=== PATIENT | male | born 1960 | race Caucasian/White ===

== ENCOUNTER 2018-12-10 14:32 | Emergency (ER) | payer OTHER ==
--- NOTE | 2018-12-10 14:39 | PDOC ---
Rapid Medical Evaluation Time Seen by Provider: 12/10/18 14:38 Medical Evaluation: Allergies Allergy/AdvReac Type Severity Reaction Status Date / Time azithromycin [From Zithromax] Allergy Verified 02/09/13 20:58 diphenhydramine HCl Allergy Verified 02/09/13 20:57 [From Benadryl] Penicillins Allergy Verified 02/09/13 20:58 12/10/18 14:38 I have performed a brief in-person evaluation of this patient. The patient presents with a chief complaint of: RUQ pain and nausea Pertinent physical exam findings: Mild RUQ tenderness I have ordered the following: Labs, RUQ u/s The patient will proceed to the ED for further evaluation. Discharge Disposition - Diagnosis Right upper quadrant abdominal pain - Referrals Referrals: Swathi Santa MD [Primary Care Provider] - - Patient Instructions - Post Discharge Activity
[2018-12-10 14:42] VITALS: BP 144/80; PULSE 85; TEMP 99.6; BMI 36.6
[2018-12-10 15:14] LABS: BASO % 0.4 % (0-2.0); EOS % 0.6 % (0-4.5); HEMATOCRIT 43.5 % (35.4-49); LYMPH % 28.5 % (8-40); MCH 30.4 pg (25.7-33.7); MCHC 34.4 g/dl (32.0-35.9); MEAN CELL VOLUME 88.3 fl (80-96); MEAN PLT VOLUME 9.8 fl (7.5-11.1); MONO % 7.6 % (3.8-10.2); NEUT % 62.9 % (42.8-82.8); PLATELET COUNT 205 K/MM3 (134-434); RBC 4.93 M/mm3 (4.00-5.60); RDW 14.6 % (11.9-15.9)
--- NOTE | 2018-12-10 15:17 | PDOC ---
Attending Attestation - HPI HPI: 12/10/18 16:24 The patient is a 58 year old male, with no significant PMH, who presents to the emergency department with 2 days of RUQ pain. The patient reports associated nausea, yesterday, but denies vomiting. He states he did not eat yesterday secondary to nausea and pain. The patient reports he took tylenol this morning, with minimal relief. The patient notes eating a meal a few hours ago, which exacerbated his pain, prompting his ED visit. He reports his pain as 7/10, intermittent and burning without radiation. The patient denies chest pain, shortness of breath, headache and dizziness. Denies fever, chills, vomit, diarrhea and constipation. Denies dysuria, frequency, urgency and hematuria. Allergies: azithromycin, diphenhydramine HCL, Pencillins. PCP: Dr. Swathi Santa #[phone] - Physicial Exam PE: 12/10/18 17:01 GENERAL: Awake, alert, and fully oriented, in no acute distress HEAD: No signs of trauma EYES: PERRLA, EOMI, sclera anicteric, conjunctiva clear ENT: Auricles normal inspection, hearing grossly normal, nares patent, oropharynx clear without exudates. Moist mucosa NECK: Normal ROM, supple, no lymphadenopathy, JVD, or masses LUNGS: Breath sounds equal, clear to auscultation bilaterally. No wheezes, and no crackles HEART: Regular rate and rhythm, normal S1 and S2, no murmurs, rubs or gallops ABDOMEN: +Very minimal tenderness to deep palpation to RUQ. Soft, normoactive bowel sounds. No guarding, no rebound. No masses EXTREMITIES: Normal range of motion, no edema. No clubbing or cyanosis. No cords, erythema, or tenderness NEUROLOGICAL: Cranial nerves II through XII grossly intact. Normal speech, normal gait SKIN: Warm, Dry, normal turgor, no rashes or lesions noted. - Medical Decision Making 12/10/18 17:01 Documentation prepared by Angelina Campos, acting as certified medical aide for Manuela Ruiz MD.
--- NOTE | 2018-12-10 15:32 | PDOC ---
History of Present Illness - General Chief Complaint: Pain, Acute Stated Complaint: RUQ PAIN,PCP SENT Time Seen by Provider: 12/10/18 14:38 - History of Present Illness Initial Comments: Vincent Booth is a 58yo otherwise healthy man who presents with RUQ pain that has worsened over the past 2 days. He has never had similar pain in the past. He reports that the pain is burning in nature, and waxes and wanes somewhat throughout the day. Yesterday, the pain was about 5/10. He had some accompanying nausea and did not attempt to eat anything yesterday. Today, the pain was slightly more severe, so he took 500mg acetaminophen when he got to work today (~8am) with notable improvement in his pain. He had spaghetti for lunch, after which he had an increase in his pain. Mr Booth went to his PMD and was referred to the ED; he says that he was told it could be his gallbladder and that he would need an ultrasound. Mr Booth denies any recent fevers/shivering, vomiting, change in bowel habits , or major abdominal surgery (2x inguinal hernia repair). He does not have a history of gallstones. He does report that he has frequent hard stools and needs to strain for a bowel movement, but this has not changed over the past few days. Past History - Past Medical History Allergies/Adverse Reactions: Allergies Allergy/AdvReac Type Severity Reaction Status Date / Time azithromycin [From Zithromax] Allergy Verified 02/09/13 20:58 diphenhydramine HCl Allergy Verified 02/09/13 20:57 [From Benadryl] Penicillins Allergy Verified 02/09/13 20:58 Home Medications: Ambulatory Orders No Home Medications 0 dose .ROUTE UTDICT 02/09/13 Psyllium [Metamucil (Sugar-Free) -] 5.85 gm PO DAILY #30 packet 12/10/18 COPD: No - Surgical History GI Surgery: No Neurologic Surgery: No - Immunization History Immunization Up to Date: Yes - Suicide/Smoking/Psychosocial Hx Smoking Status: No Smoking History: Never smoked Have you smoked in the past 12 months: No Number of Cigarettes Smoked Daily: 0 Information on smoking cessation initiated: No Hx Alcohol Use: No Drug/Substance Use Hx: No Review of Systems - Review of Systems Comments:: General: No fevers, no chills, no weight or appetite change, no malaise HEENT: No changes in vision, no changes in hearing, no congestion, no sore throat CV: No chest pain, no palpitations, no LE edema Pulm: No SOB, no cough, no wheezing GI: +RUQ pain, +nausea, no vomiting, no change in bowel habits, no melena : No frequency, no urgency, no dysuria Musc: No back pain, no joint swelling, no recent injury Skin: No rash, no lesions, no erythema Endo: No excessive thirst, no heat/cold intolerance Heme: No unusual bruising or bleeding, no swollen glands Neuro: No syncope, no numbness/tingling, no focal weakness Vasc: No claudication Psych: No recent change in mood, no SI or HI *Physical Exam - Vital Signs Last Vital Signs Temp Pulse Resp BP Pulse Ox 99.6 F 85 16 144/80 100 12/10/18 14:40 12/10/18 14:40 12/10/18 14:40 12/10/18 14:40 12/10/18 14:40 - Physical Exam Comments: General: Comfortable, no acute distress HEENT: PERRL, EOMI, MMM, voice normal, normal neck ROM, no LAD Cards: RRR, no murmur appreciated Pulm: Comfortable on room air, clear to auscultation bilaterally Abd: Soft, nontender, nondistended : No CVA tenderness Ext: Atraumatic. No LE edema. ROM intact. Strength 5/5 and equal bilaterally Vasc: Extremities WWP. Skin: Normal color, no rashes or lesions Neuro: A&Ox3, CN grossly intact, normal speech, motor/sensory grossly intact and symmetric Psych: Mood appropriate to situation Moderate Sedation - Procedure Monitoring Vital Signs: Procedure Monitoring Vital Signs Temperature 99.6 F 12/10/18 14:40 Pulse Rate 85 12/10/18 14:40 Respiratory Rate 16 12/10/18 14:40 Blood Pressure 144/80 12/10/18 14:40 O2 Sat by Pulse Oximetry (%) 100 12/10/18 14:40 ED Treatment Course - LABORATORY CBC & Chemistry Diagram: 12/10/18 14:48 12/10/18 14:48 - ADDITIONAL ORDERS Additional order review: 12/10/18 14:48 RBC 4.93 MCV 88.3 MCHC 34.4 RDW 14.6 MPV 9.8 Neutrophils % 62.9 Lymphocytes % 28.5 Monocytes % 7.6 Eosinophils % 0.6 Basophils % 0.4 Medical Decision Making - Medical Decision Making 12/10/18 16:38 Vincent Booth is a 58yo otherwise healthy man who presents with worsening RUQ pain and nausea for several days. - Ddx includes gallstones, cholecystitis though less likely given no fever, liver cyst v infection, or potentially renal stone or pneumonia given location though these are unlikely as he has no cough or urinary complaints and the pain is non-radiating - Seen in RME, labs and RUQ US ordered, already completed - Labs unremarkable w/ normal LFTs, bili, lipase. - US reviewed, no obvious abnormalities including gallstones, gallbladder wall thickening, duct dilation noted. Radiology read pending - Reassuring physical exam w/ minimal RUQ pain, patient appears comfortable - Patient offered acetaminophen but declined any pain medication, states he does not need medication at this time - Likely to d/c home with PMD follow up pending final read of US 12/10/18 16:48 - US report completed. Notes fatty liver infiltrate v possible infectious process. However, LFT's WNL. - Plan to refer to GI for close follow up, will d/c home. Discussed that he should not take acetaminophen for pain with possible liver pathology, recommending NSAIDs for any pain control - Discharge home. Discussed return precautions and home care, Mr Booth states understanding and agreement with this plan. Discussed with Dr Ruiz. Odalys Dodson PGY1 *DC/Admit/Observation/Transfer Diagnosis at time of Disposition: Right upper quadrant abdominal pain - Discharge Dispostion Condition at time of disposition: Stable - Referrals Referrals: Swathi Santa MD [Primary Care Provider] - Rohan Valadez DO [Staff Physician] - - Patient Instructions Printed Discharge Instructions: DI for Abdominal Pain-Adult Additional Instructions: Discharge Instructions: You were seen in the emergency department for right upper abdominal pain. You had blood tests to check for infection or abnormalities in your gallbladder, liver, pancreas or kidney function tests. These were all normal. You also had an abdominal ultrasound that showed a possible fatty liver, but there was nothing abnormal seen in your gallbladder or kidney. Home Care: - You may take 500mg acetaminophen (Tylenol) every 8 hours as needed for pain. Instead of this, you could also consider naproxen (Aleve) 220mg every 12 hours OR 600mg ibuprofen (Advil) every 8 hours. - You reported some chronic constipation. You have been prescribed a medication called Metamucil that should be taken every day. If you do not have a bowel movement daily without straining, you can add an over the counter stool softener such as docusate daily. This can be purchased at the store or prescribed by your regular physician. - Increase your water intake to help resolve your constipation. You should try to drink 6-8 cups of water per day. Follow Up: - You have been referred to a GI doctor (Dr Valadez) for follow up of your fatty liver. You should make an appointment to see him within the next 1-2 weeks. - Make an appointment to see your regular doctor within the next week for follow up of your pain and the constipation. - Seek immediate medical care if your pain worsens significantly, you are unable to move without severe pain, you notice yellowing of your skin or eyes, you develop fever to 101F or higher, or you have any medical emergency including shortness of breath or chest pain. - Post Discharge Activity
[2018-12-10 15:33] LABS: ALK PHOS 85 U/L (45-117); ANION GAP 5 MMOL/L (8-16); BILIRUBIN,TOTAL 0.6 mg/dL (0.2-1); BLOOD UREA NITROGEN 11 mg/dL (7-18); CHLORIDE 102 mmol/L (98-107); CO2 31 mmol/L (21-32); CREATININE 0.8 mg/dL (0.55-1.3); GLUCOSE,RANDOM 88 mg/dL (74-106); LIPASE 255 U/L (73-393); POTASSIUM 3.8 mmol/L (3.5-5.1); SGOT/AST 27 U/L (15-37); SGPT/ALT 39 U/L (13-61); SODIUM 137 mmol/L (136-145); TOT PROT 8.3 g/dl (6.4-8.2)
== END 2018-12-10 18:46 | disposition home or self-care (01) ==
LOC: JER 14:32
DX: R10.11 Right upper quadrant pain (principal); Z88.0 Allergy status to penicillin; Z88.8 Allergy status to other drugs, medicaments and biological substances
CPT/HCPCS: 36415; 76705-TC; 80053; 83690; 85025; 99281-25

== ENCOUNTER 2019-06-30 14:54 | Inpatient (IN) | payer OTHER ==
--- NOTE | 2019-06-30 15:04 | PDOC ---
History of Present Illness - General Stated Complaint: RIGHT SIDE NUMBNESS Time Seen by Provider: 06/30/19 15:00 - History of Present Illness Initial Comments: 06/30/19 15:51 HPI: 58 y/o M with no significant pmh presenting 20min after sudden onset of right sided face, arm, and leg weakness and numbness. He was riding the bus when the symptoms began. During this period he also reports nonspecific headache. He denies syncope, falls, seizure, slurred speech, change in vision, tinnitus, nausea, emesis, chest pain, LH, chest pain, SOB. He promptly reported to the ED after the onset of symptoms. PMHx: as noted above ROS: as noted SHx: Denies Etoh, IVDA, tobacco use Allergies: NKDA tPA Exclusion Checklist 0-3hr - Time Elapsed Date last known well: 06/30/19 Time last known well: 14:50 Elaspsed time: Day(s) and 3 Hour(s) and 30 Minutes - Thrombolytic Therapy Candidate Is the patient eligible for Thrombolytic Therapy?: No - Exclusion Criteria 0-3hr SBP greater than 185 or DBP greater than 110mmHg despite tx: No Recent IC/spinal surgery,head trauma or stroke w/in last 3mo: No Hx of previous IC hemorrhage, IC neoplasm, AVM or aneurysm: No Active internal bleeding: No Blding diathesis(low plt ct, inc PTT,INR>1.7 or use of NOAC): No Symptoms suggest subarachnoid hemorrhage: No CT demonstrates multilobar infarct(>1/3 cerebral hemiphere): No Arterial puncture at noncompressible site in previous 7 days: No Blood glucose concentration less than 50mg/dL (2.7mmol/L): No - Relative Exclusion Criteria 0-3h Life expectancy <1yr/severe co-morbid illness/[employer]ATR[employer]IVER on admit: No : No Patient/family refused: No Rapid improvement: Yes Stroke severity too mild: Yes Recent acute [place] (w/in previous 3 months): No Seizure at onset with postictal residual neuro impairments: No Major surgery or serious trauma w/in previous 14 days: No Recent GI or hemorrhage (w/in previous 21 days): No - Ineligibility reason(s) Reasons No tPA given: See reason(s) noted above NIH Stroke Scale - Last Known Well Date/Time & Onset Date Last Known Well: 06/30/19 Time Last Known Well: 14:50 - Initial Evaluation Level of consciousness: Alert Ask patient the month and their age: Answers both correctly Ask patient to open & close eyes; make fist and let go: Obeys both correctly Best gaze (horizontal eye movement): Normal Visual field testing: No visual field loss Facial paresis (Show teeth/raise eyebrows/close eyes tight): Normal symmetrical movement (Repeat NIHSS after CT revealed NIHSS 6 for nasolabial flattening and questionable right LE dysmetria) Motor Function: Left Arm: Normal Motor Function: Right Arm: Drift Motor Function: Left Leg: Normal (extends leg 30 degrees for 5 seconds without drift) Motor Function: Right Leg: Drift Limb Ataxia: Present in one limb Sensory(Use pinprick test arms,legs,trunk,face/side to side): Mild to moderate decrease in sensation Best language (Describe picture, name items, read sentences): No Aphasia Dysarthria (read several words): Normal articulation Extinction and Inattention: No abnormality - Total Score NIH Stroke Scale Score: 4 Past History - Past Medical History Allergies/Adverse Reactions: Allergies Allergy/AdvReac Type Severity Reaction Status Date / Time azithromycin [From Zithromax] Allergy Verified 02/09/13 20:58 diphenhydramine HCl Allergy Verified 02/09/13 20:57 [From Benadryl] Penicillins Allergy Verified 02/09/13 20:58 Home Medications: Ambulatory Orders No Home Medications 0 dose .ROUTE UTDICT 02/09/13 Psyllium [Metamucil (Sugar-Free) -] 5.85 gm PO DAILY #30 packet 12/10/18 COPD: No - Surgical History GI Surgery: No Neurologic Surgery: No - Immunization History Immunization Up to Date: Yes - Suicide/Smoking/Psychosocial Hx Smoking Status: No Smoking History: Never smoked Have you smoked in the past 12 months: No Number of Cigarettes Smoked Daily: 0 Hx Alcohol Use: No Drug/Substance Use Hx: No Review of Systems - Review of Systems Comments:: 06/30/19 16:22 GENERAL/CONSTITUTIONAL: +weakness. HEAD, EYES, EARS, NOSE AND THROAT: No change in vision. No ear pain or discharge. No sore throat. CARDIOVASCULAR: No chest pain or shortness of breath RESPIRATORY: No cough, wheezing, or hemoptysis. GASTROINTESTINAL: No nausea, vomiting, diarrhea or constipation. GENITOURINARY: No dysuria, frequency, or change in urination. MUSCULOSKELETAL: No joint or muscle swelling or pain. No neck or back pain. SKIN: No rash NEUROLOGIC: +headache and change in strength/sensation. no vertigo, loss of consciousness ENDOCRINE: No increased thirst. No abnormal weight change HEMATOLOGIC/LYMPHATIC: No anemia, easy bleeding, or history of blood clots. ALLERGIC/IMMUNOLOGIC: No hives or skin allergy. *Physical Exam - Physical Exam Comments: 06/30/19 16:23 GENERAL: Awake, alert, and fully oriented, in no acute distress HEAD: No signs of trauma, normocephalic, atraumatic EYES: PERRLA, EOMI, sclera anicteric, conjunctiva clear ENT: Auricles normal inspection, hearing grossly normal, nares patent, oropharynx clear without exudates. Moist mucosa NECK: Normal ROM, supple, no lymphadenopathy, JVD, or masses LUNGS: No distress, speaks full sentences, clear to auscultation bilaterally HEART: Regular rate and rhythm, normal S1 and S2, no murmurs, rubs or gallops, peripheral pulses normal and equal bilaterally. ABDOMEN: Soft, nontender, normoactive bowel sounds. No guarding, no rebound. No masses EXTREMITIES : Normal inspection, Normal range of motion, no edema. No clubbing or cyanosis. NEUROLOGICAL: NIHSS 4; see scale SKIN: Warm, Dry, normal turgor, no rashes or lesions noted ED Treatment Course - LABORATORY CBC & Chemistry Diagram: 06/30/19 15:18 06/30/19 15:18 Medical Decision Making - Medical Decision Making 06/30/19 16:24 58 y/o M with no significant pmh presenting 20min after sudden onset of right sided face, arm, and leg weakness and numbness. -code pérez initiated at T00:[address] completed by T00:45 -Dr Treviño consulted and stated NIH improved from 4 to 0; patient not tPA candidate due to mild stroke and improving symptoms -full stroke workup: cbc, cmp, cardiac prof, coags, ua, ekg, cxr, ct head, t&s, lipid prof 06/30/19 16:34 Dr Treviño rec CTA and MRI brain non-con 06/30/19 17:[address] Santa tele unit *DC/Admit/Observation/Transfer Diagnosis at time of Disposition: Transient ischemic attack - Discharge Dispostion Condition at time of disposition: Stable - Referrals - Patient Instructions - Post Discharge Activity
[2019-06-30 15:54] LABS: BASO % 0.5 % (0-2.0); EOS % 0.7 % (0-4.5); HEMATOCRIT 43.4 % (35.4-49); HEMOGLOBIN 14.7 GM/dL (11.7-16.9); LYMPH % 36.7 % (8-40); MCH 30.1 pg (25.7-33.7); MEAN CELL VOLUME 88.7 fl (80-96); MEAN PLT VOLUME 9.6 fl (7.5-11.1); MONO % 7.1 % (3.8-10.2); PLATELET COUNT 222 K/MM3 (134-434); RBC 4.89 M/mm3 (4.00-5.60); RDW 14.8 % (11.9-15.9); WHITE BLOOD COUNT 7.6 K/mm3 (4.0-10.0)
--- NOTE | 2019-06-30 16:00 | PDOC ---
Documentation entered by Joseph Wharton SCRIBE, acting as scribe for Almaz Ladd MD. Almaz Ladd MD: This documentation has been prepared by the Akiko zacarias Elijah, SCRIBE, under my direction and personally reviewed by me in its entirety. I confirm that the documentation accurately reflects all work, treatment, procedures, and medical decision making performed by me. Attending Attestation - Resident Resident Name: Soren Humphries - ED Attending Attestation I have performed the following: I have examined & evaluated the patient, The case was reviewed & discussed with the resident, I agree w/resident's findings & plan - HPI HPI: 06/30/19 15:23 Patient is a 58 year old RHD male with no reported past medical history who presents ambulatory to the ED with R-Sided Weakness. Patient reports that he was in his usual state of health this morning, he was on his way to work when he started to feel like his R-arm and R-leg were asleep. Denies Nausea. Allergies: Azithromycin, Diphenhydramine, Penicillins PCP: Dr. Santa 07/02/19 18:58 - Physicial Exam PE: 06/30/19 15:39 GENERAL: The patient is in no acute distress. ENT: Ears normal, nares patent, oropharynx clear without exudates. Moist mucous membranes. NECK: Normal range of motion, supple, no nuchal rigidity LUNGS: Breath sounds equal, clear to auscultation bilaterally. No wheezes, and no crackles. HEART: Regular rate and rhythm, normal S1 and S2 without murmur, rub or gallop. ABDOMEN: Soft, nontender, normoactive bowel sounds. No guarding, no rebound. No masses palpable. EXTREMITIES: Normal range of motion, no edema. NEUROLOGICAL: See NIHSS SKIN: Warm, Dry, normal turgor, no rashes or lesions noted. - Critical Care Time Total Critical Care Time: 60 Critical Care Statement: The care of this patient involved high complexity decision making to prevent further life threatening deterioration of the patient 's condition and/or to evaluate & treat vital organ system(s) failure or risk of failure. - Medical Decision Making 06/30/19 16:00 Delayed note entry: 58 yo RHD M presenting with new neurological symptoms since 2:50pm Pt has NO HTN, HLD, DM, TOBACCO USE NO prior episodes like this Pt reports hand heaviness, arm heaviness No headaches Stroke protocol initiated Stroke scale (by Dr Bhatti 4) Pt sent to CT Call placed to Dr Pisano Recommends no TPA Stroke scale repeated (is 6) Call placed again to Dr Pisano Recommends TPA I have begun a conversation with this patient about TPA This is explained to him in algerian Pt has limited understanding of what I am saying Pt requests his tax economist's input and has called him, requesting that all discussions include his tax economist Pt states he feels a bit better but still notices heaviness Call placed to Dr Kamila Treviño is available to see this pt in the ER I have consulted him given this patient's age, lack of risk factors, improving examination EKG: Twelve-lead EKG was performed and reviewed by me. There is normal sinus rhythm with a rate of 100 bpm. Incomplete RBBB. The axis is normal. The intervals are normal. There are no ST or T wave abnormalities. Impression: Normal twelve-lead EKG CT head: no acute ICH, no mass, 06/30/19 16:12 Dr Treviño has seen this patient Symptoms have improved Dr Treviño's exam NIHSS = 0 06/30/19 16:13 Laboratory Tests 06/30/19 06/30/19 06/30/19 15:18 15:18 15:18 WBC 7.6 Hgb 14.7 Hct 43.4 Plt Count 222 INR 1.05 Creatine Kinase 413 H Troponin I < 0.02 06/30/19 16:13 06/30/19 16:15 Case reviewed with PMD Aspirin given Will admit to stroke unit Clinical impression: CVA, initial presentation *DC/Admit/Observation/Transfer Diagnosis at time of Disposition: Transient ischemic attack - Discharge Dispostion Disposition: HOME Condition at time of disposition: Stable Decision to Admit order: Yes - Referrals - Patient Instructions - Post Discharge Activity NIH Stroke Scale - Last Known Well Date/Time & Onset Date Last Known Well: 06/30/19 Time Last Known Well: 14:50 - Initial Evaluation Level of consciousness: Alert Ask patient the month and their age: Answers both correctly Ask patient to open & close eyes; make fist and let go: Obeys both correctly Best gaze (horizontal eye movement): Normal Visual field testing: No visual field loss Facial paresis (Show teeth/raise eyebrows/close eyes tight): Minor paralysis ( flattened nasolabial fold, asymmetry on smiling) Motor Function: Left Arm: Normal Motor Function: Right Arm: Drift Motor Function: Left Leg: Normal (extends leg 30 degrees for 5 seconds without drift) Motor Function: Right Leg: Drift Limb Ataxia: Present in two limbs Sensory(Use pinprick test arms,legs,trunk,face/side to side): Mild to moderate decrease in sensation Best language (Describe picture, name items, read sentences): No Aphasia Dysarthria (read several words): Normal articulation Extinction and Inattention: No abnormality - Total Score NIH Stroke Scale Score: 6 tPA Exclusion Checklist 0-3hr - Time Elapsed Date last known well: 06/30/19 Time last known well: 14:50 Elaspsed time: 2 Day(s) and 4 Hour(s) and 8 Minutes - Thrombolytic Therapy Candidate Is the patient eligible for Thrombolytic Therapy?: Yes - Exclusion Criteria 0-3hr SBP greater than 185 or DBP greater than 110mmHg despite tx: No Recent IC/spinal surgery,head trauma or stroke w/in last 3mo: No Hx of previous IC hemorrhage, IC neoplasm, AVM or aneurysm: No Active internal bleeding: No Blding diathesis(low plt ct, inc PTT,INR>1.7 or use of NOAC): No Symptoms suggest subarachnoid hemorrhage: No CT demonstrates multilobar infarct(>1/3 cerebral hemiphere): No Arterial puncture at noncompressible site in previous 7 days: No Blood glucose concentration less than 50mg/dL (2.7mmol/L): No - Relative Exclusion Criteria 0-3h Life expectancy <1yr/severe co-morbid illness/BURSAR on admit: No : No Patient/family refused: No Rapid improvement: No Stroke severity too mild: No Recent acute [place] (w/in previous 3 months): No Seizure at onset with postictal residual neuro impairments: No Major surgery or serious trauma w/in previous 14 days: No Recent GI or hemorrhage (w/in previous 21 days): No - Ineligibility reason(s) Reasons No tPA given: See reason(s) noted above
[2019-06-30] MEDS ORDERED: ASPIRIN 81 MG CHEWABLE TABLETS PO ONE (16:07)
[2019-06-30] MEDS ORDERED: ASPIRIN 325 MG TABLET PO ONE (16:07)
[2019-06-30 16:09] LABS: INR 1.05 (0.83-1.09); PROTHROMBIN TIME (PATIENT) 12.4 SEC (9.7-13.0)
--- NOTE | 2019-06-30 16:18 | CON.NEURO ---
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 I so the patient for old 4 PM CAT scan of the head revealed no evidence of bleed. NIH stroke scale dropped from 2-0. Patient was not a candidate for TPA because the patient got better. In the emergency room patient denies any chest pain palpitations no headache or blurry vision - History Source History Provided By: Patient Limitations to Obtaining History: No Limitations - Alcohol/Substance Use Hx Alcohol Use: No - Smoking History Smoking history: Never smoked Have you smoked in the past 12 months: No Aproximately how many cigarettes per day: 0 Home Medications - Allergies Allergies/Adverse Reactions: Allergies Allergy/AdvReac Type Severity Reaction Status Date / Time azithromycin [From Zithromax] Allergy Verified 02/09/13 20:58 diphenhydramine HCl Allergy Verified 02/09/13 20:57 [From Benadryl] Penicillins Allergy Verified 02/09/13 20:58 - Home Medications Home Medications: Ambulatory Orders No Home Medications 0 dose .ROUTE UTDICT 02/09/13 Psyllium [Metamucil (Sugar-Free) -] 5.85 gm PO DAILY #30 packet 12/10/18 Family Disease History - Family Disease History Family History: Denies (cva) Review of Systems - Review of Systems Constitutional: reports: No Symptoms Eyes: reports: No Symptoms Neurological: reports: No Symptoms Physical Exam-Neuro Constitutional: Yes: Well Nourished Neck: Yes: WNL Cardiovascular: Yes: WNL Labs: CBC, BMP 06/30/19 15:18 INR, PTT INR 1.05 (0.83-1.09) 06/30/19 15:18 - Neuro Exam Level Of Consciousness: Yes: Alert, Oriented to Person, Oriented to Place Eyes: Yes: PERRLA Speech: WNL Cranial Nerves II-XII Intact: Yes Gag: Present DTR's: 1+ Left Bicep, 1+ Right Bicep, 1+ Left Brachioradialis, 1+ Right Brachioradialis Response to light touch: Normal Response to pain prick: Normal Response to temperature: Normal Response to vibration: Normal Motor Strength: 4/5: Left Arm, Right Arm, Left Leg, Right Leg Gait: Deferred NIH Stroke Scale - Last Known Well Date/Time & Onset Date Last Known Well: 06/30/19 Time Last Known Well: 14:50 - Initial Evaluation Level of consciousness: Alert Ask patient the month and their age: Answers both correctly Ask patient to open & close eyes; make fist and let go: Obeys both correctly Best gaze (horizontal eye movement): Normal Visual field testing: No visual field loss Facial paresis (Show teeth/raise eyebrows/close eyes tight): Normal symmetrical movement Motor Function: Left Arm: Normal Motor Function: Right Arm: Normal (extends arm 90 (or 45) degrees for 10 seconds without drift Motor Function: Left Leg: Normal (extends leg 30 degrees for 5 seconds without drift) Motor Function: Right Leg: Normal (extends leg 30 degrees for 5 seconds without drift) Limb Ataxia: No ataxia Sensory(Use pinprick test arms,legs,trunk,face/side to side): Normal Best language (Describe picture, name items, read sentences): No Aphasia Dysarthria (read several words): Normal articulation Extinction and Inattention: No abnormality - Total Score NIH Stroke Scale Score: 0 Imaging - Results Cat Scan: Image Reviewed Problem List - Problems (1) CVA (cerebral vascular accident) Assessment/Plan: 58-year-old man with essentially no medical history presents with right arm and leg weakness that resolved in about 25 minutes from arrival Patient is back to his baseline Stroke protocol is initiated NIH stroke scale was 0 Patient is not a candidate for TPA 1. Admit to telemetry 2. Baby aspirin 3. CT angiogram in the emergency room 4. MRI of the brain with no contrast 5. Echocardiogram/carotid Doppler/dysphagia protocol 6. Consider statin 7. SCDs Code(s): I63.9 - CEREBRAL INFARCTION, UNSPECIFIED
[2019-06-30 16:19] LABS: ALBUMIN 3.9 g/dl (3.4-5.0); BILIRUBIN,TOTAL 0.6 mg/dL (0.2-1); BLOOD UREA NITROGEN 12.3 mg/dL (7-18); CALCIUM 9.2 mg/dL (8.5-10.1); CREATININE 0.9 mg/dL (0.55-1.3); POTASSIUM 3.7 mmol/L (3.5-5.1); TOT PROT 8.3 g/dl (6.4-8.2)
[2019-06-30] MEDS ORDERED: ASPIRIN 325 MG TABLET ONE (16:19)
[2019-06-30] MEDS: SODIUM CHLORIDE 1,000 ML IV SCH ×2 (16:33→22:44)
--- NOTE | 2019-06-30 17:47 | HP ---
Admitting History and Physical - Primary Care Physician PCP: Swathi Santa - Admission History of Present Illness: pt seen/ examined in er chart reviewed case discussed with er physician In summary Patient is a 58 year old male with h/o fatty liver/ overweight who presents to the ED with R-Sided Weakness. Patient reports that they were on their way to work when he started to feel like his R-arm and R-leg were asleep with an associated Headache. Denies Nausea. ct head -ve pt improved-- so no tpa given Seen by neurology will be admitted to tele History Source: Patient, Family Member Limitations to Obtaining History: No Limitations - Smoking History Smoking history: Never smoked Have you smoked in the past 12 months: No Aproximately how many cigarettes per day: 0 - Alcohol/Substance Use Hx Alcohol Use: No Home Medications - Allergies Allergies/Adverse Reactions: Allergies Allergy/AdvReac Type Severity Reaction Status Date / Time azithromycin [From Zithromax] Allergy Verified 02/09/13 20:58 diphenhydramine HCl Allergy Verified 02/09/13 20:57 [From Benadryl] Penicillins Allergy Verified 02/09/13 20:58 - Home Medications Home Medications: Ambulatory Orders No Home Medications 0 dose .ROUTE UTDICT 02/09/13 Psyllium [Metamucil (Sugar-Free) -] 5.85 gm PO DAILY #30 packet 12/10/18 Family Disease History - Family Disease History Family History: Unremarkable Review of Systems - Review of Systems Constitutional: reports: No Symptoms Eyes: reports: No Symptoms HENT: reports: No Symptoms Neck: reports: No Symptoms Cardiovascular: reports: No Symptoms Respiratory: reports: No Symptoms Gastrointestinal: reports: No Symptoms Genitourinary: reports: No Symptoms Breasts: reports: No Symptoms Reported Musculoskeletal: reports: No Symptoms Integumentary: reports: No Symptoms Neurological: reports: Numbness, Parasthesia Endocrine: reports: No Symptoms Hematology/Lymphatic: reports: No Symptoms Psychiatric: reports: No Symptoms Physical Examination Vital Signs: Vital Signs Temperature 98.6 F 06/30/19 15:00 Pulse Rate 105 H 06/30/19 15:00 Respiratory Rate 20 06/30/19 15:00 Blood Pressure 156/103 H 06/30/19 15:00 O2 Sat by Pulse Oximetry (%) 100 06/30/19 15:00 Constitutional: Yes: No Distress, Calm, Obese Eyes: Yes: WNL HENT: Yes: WNL Neck: Yes: Supple Cardiovascular: Yes: Regular Rate and Rhythm Respiratory: Yes: CTA Bilaterally Gastrointestinal: Yes: Normal Bowel Sounds, Soft Edema: No Neurological: Yes: WNL, Alert, Numbness ...Motor Strength: WNL, RUE Psychiatric: Yes: Alert Labs: CBC, BMP 06/30/19 15:18 06/30/19 15:18 Imaging - Results Cat Scan: Report Reviewed EKG: Report Reviewed Problem List - Problems (1) Obesity Code(s): E66.9 - OBESITY, UNSPECIFIED (2) CVA (cerebral vascular accident) Code(s): I63.9 - CEREBRAL INFARCTION, UNSPECIFIED Assessment/Plan admit tele asa lipitor cta done will review report - when available check lipid profile u/s carotid s/s eval will follow
[2019-06-30] MEDS: ATORVASTATIN CA 80 MG TABLET (FP) PO SCH (22:43)
--- NOTE | 2019-06-30 23:32 | EKG ---
Test Reason : Blood Pressure : / mmHG Vent. Rate : 100 BPM Atrial Rate : 100 BPM P-R Int : 166 ms QRS Dur : 102 ms QT Int : 350 ms P-R-T Axes : 055 002 033 degrees QTc Int : 451 ms POOR DATA QUALITY, INTERPRETATION MAY BE ADVERSELY AFFECTED NORMAL SINUS RHYTHM INCOMPLETE RIGHT BUNDLE BRANCH BLOCK BORDERLINE ECG WHEN COMPARED WITH ECG OF 24-AUG-2008 11:47, INCOMPLETE RIGHT BUNDLE BRANCH BLOCK IS NOW PRESENT NONSPECIFIC T WAVE ABNORMALITY NOW EVIDENT IN ANTERIOR LEADS Confirmed by FLOR BLAS MD ([id number]) on 06/30/2019 11:31:37 PM Referred By: Confirmed By:FLOR BLAS MD
[2019-07-01 00:55] VITALS: BMI 35.3
[2019-07-01 08:04] LABS: ALBUMIN 3.4 g/dl (3.4-5.0); BILIRUBIN,TOTAL 0.8 mg/dL (0.2-1); BLOOD UREA NITROGEN 9.4 mg/dL (7-18); CALCIUM 8.5 mg/dL (8.5-10.1); CREATININE 0.7 mg/dL (0.55-1.3); POTASSIUM 3.9 mmol/L (3.5-5.1); TOT PROT 7.5 g/dl (6.4-8.2)
[2019-07-01 08:07] LABS: BASO % 0.3 % (0-2.0); EOS % 0.6 % (0-4.5); HEMATOCRIT 42.2 % (35.4-49); HEMOGLOBIN 14.3 GM/dL (11.7-16.9); LYMPH % 22.3 % (8-40); MCH 30.3 pg (25.7-33.7); MCHC 33.9 g/dl (32.0-35.9); MEAN CELL VOLUME 89.2 fl (80-96); MEAN PLT VOLUME 9.7 fl (7.5-11.1); MONO % 7.2 % (3.8-10.2); NEUT % 69.6 % (42.8-82.8); PLATELET COUNT 205 K/MM3 (134-434); RBC 4.73 M/mm3 (4.00-5.60); RDW 14.4 % (11.9-15.9); WHITE BLOOD COUNT 6.8 K/mm3 (4.0-10.0)
[2019-07-01] MEDS: ASPIRIN COATED 81 MG TABLET.EC PO SCH (09:55)
[2019-07-01] MEDS: ENOXAPARIN NA (PORCINE) 40 MG/0.4 ML DISP.SYRIN SQ SCH (09:55)
--- NOTE | 2019-07-01 10:25 | CONSULT ---
Admitting History and Physical - Primary Care Physician PCP: Swathi Santa - Admission History of Present Illness: 58 year old male with h/o fatty liver/ overweight who presents to the ED with R -Sided Weakness, which occurred on a bus,on their way to work. He feels that he is mostly better but still feels "different" when he brushes his teeth. History Source: Patient Limitations to Obtaining History: No Limitations - Smoking History Smoking history: Never smoked Have you smoked in the past 12 months: No Aproximately how many cigarettes per day: 0 - Alcohol/Substance Use Hx Alcohol Use: No History - Admission Reason For Visit: TRANSIENT ISCHEMIC ATTACK - Diagnostics X-ray: Report Reviewed CT Scan: Report Reviewed MRI: Pending Other: Report Reviewed (EKG-06/30-incomplete right bundle branch block- Pt monitored on telemetry) - General Mental Status: Alert and Oriented, Awake and Alert, Able to Follow Commands Attention: Intact Ability to Follow Directions: Excellent Head/Neck Control: WFL - Hearing Hearing: Normal Hearing Aide: No With Patient: No Speech Evaluation - Communication Primary Language: SOMALI Secondary Language: SRI LANKAN (fluent) Communication: Yes: Within Normal Limits Oral Expression Ability: Yes: No Impairment - Speech Production Able to Make Needs Known: Yes: WNL Intelligibility: Yes: WNL - Speech Characteristics Voice Loudness: Normal Voice Pitch: Yes: Normal Voice Phonatory-based Quality: Yes: Normal Speech Pattern: Normal Speech Clarity: < 100% Nasal Resonance: Normal Articulation: Yes: Precise Rate of Speech: Intact - Language/Auditory Comprehension Follows: Yes: 2 Stage Simple Commands - Language/Verbal Expression Able to Respond to Simple Queries: Yes: WNL Able to Communicate Wants and Needs: Yes: WNL Functional Communication Status: Yes: WNL - 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 Short Term Memory: Yes: WNL - Swallow Evaluation/Bedside Assessment Current Nutritional Intake: Regular, Thin Liquids Oral Secretions: Yes: WFL Dentition: Yes: Adequate Facial Symmetry at Rest: Symmetrical Facial Symmetry on Retraction: Symmetrical Facial Movement: Controlled Against Resistance Opening: Normal Against Resistance Closing: Normal Pucker Lips: Normal Smile: Normal Lingual Movement: Normal, Symmetric Lingual Speed of Movement: Normal Lingual Movement Strgth Against Opposition: Normal Lingual Movement Characteristics: Normal Velopharyngeal Movement: Normal Laryngeal Elevation: WFL Laryngeal Movement: Able to Palpate Rate of Intake: WFL Bolus Size: WFL Labial Seal: WFL Chewing: WFL Oral Prep Time: WFL A-P Transit: WFL Timing of Swallow: WFL Coughing/Throat Clear: No Change in Voice: No Recommendations - Speech Evaluation, Impression/Plan Impression: Speech,swallow, cognition, language intact - Dysphagia Impressions/Plan Swallowing Skills: WFL Dysphagia Impressions: No Impairment *Silent aspiration: cannot be R/O at bedside - Recommendations Diet Consistency: Regular Medication Administration: Whole with water Liquids: Thin Liquids
[2019-07-01 11:19] LABS: URINE APPEARANCE CLEAR; URINE BILIRUBIN NEGATIVE (NEGATIVE); URINE COLOR YELLOW; URINE GLUCOSE (UA) NEGATIVE (NEGATIVE); URINE KETONE NEGATIVE (NEGATIVE); URINE LEUK ESTERASE NEGATIVE (NEGATIVE); URINE NITRITE NEGATIVE (NEGATIVE); URINE PROTEIN NEGATIVE (NEGATIVE); URINE UROBILINOGEN 0.2 mg/dL (0.2-1.0)
--- NOTE | 2019-07-01 12:12 | ECHO ---
Name: LISS SUGGS Exam:Adult Echocardiogram Study Date: 07/01/2019 07:47 AM Age: 58 yrs Reason For Study: CVA Height: 61 in Weight: 182 lb BSA: 1.8 m2 MMode/2D Measurements & Calculations IVSd: 1.1 cm Ao root diam: 3.1 cm LVIDd: 4.2 cm ACS: 1.9 cm LVIDs: 3.2 cm LVPWd: 1.5 cm EDV(Teich): 80.7 ml LVOT diam: 1.9 cm ESV(Teich): 39.6 ml Doppler Measurements & Calculations MV E max higinio: 70.6 cm/sec Ao V2 max: 128.6 cm/sec MV A max higinio: 75.5 cm/sec Ao max P.6 mmHg MV E/A: 0.93 Ao V2 mean: 87.5 cm/sec Ao mean P.6 mmHg Ao V2 VTI: 31.4 cm LUIZ(I,D): 2.0 cm2 LUIZ(V,D): 2.2 cm2 LV V1 max P.3 mmHg SV(LVOT): 62.1 ml LV V1 mean P.9 mmHg LV V1 max: 103.4 cm/sec LV V1 mean: 61.8 cm/sec LV V1 VTI: 22.5 cm TR max higinio: 179.0 cm/sec Med Peak E' Higinio: 8.0 cm/sec TR max P.8 mmHg Med E/e': 8.8 Lat Peak E' Higinio: 11.7 cm/sec Lat E/e': 6.0 Procedure A complete two-dimensional transthoracic echocardiogram was performed (2D, M-mode, Doppler and color flow Doppler). Left Ventricle The left ventricular size, thickness and function are normal. The left ventricular ejection fraction is normal. Ejection Fraction = 55-60%. The left ventricular wall motion is normal. Right Ventricle The right ventricle is normal in size and function. Atria Normal left and right atrial size and function. Mitral Valve There is no mitral regurgitation noted. Tricuspid Valve No tricuspid regurgitation. There was insufficient TR detected to calculate RV systolic pressure. Aortic Valve The aortic valve is trileaflet. No hemodynamically significant valvular aortic stenosis. Trace aortic regurgitation. Pulmonic Valve There is no pulmonic valvular regurgitation. Great Vessels The aortic root is normal size. Pericardium/Pleura There is no pericardial effusion. Interpretation Summary The left ventricular size, thickness and function are normal The right ventricle is normal in size and function. Trace aortic regurgitation. MD Brandyn Neves 07/01/2019 12:12 PM
--- NOTE | 2019-07-01 17:28 | PN ---
Progress Note (short form) - Note Progress Note: pt seen/ examined feels better decreased numbness denies cp/sob/abd pain Vital Signs Temp 98.2 F 07/01/19 15:00 Pulse 75 07/01/19 15:00 Resp 16 07/01/19 15:00 BP 130/89 07/01/19 15:00 Pulse Ox 97 07/01/19 09:00 Intake & Output 06/30/19 07/01/19 07/01/19 23:59 11:59 23:59 Intake Total 225 294 500 Balance 225 294 500 Weight 189 lb 8 oz Intake: IV 105 294 Normal Saline - 1,000 ml 105 294 @ 42 mls/hr IV ASDIR [facility] Rx#:[id number] Oral 120 500 Other: Voiding Method Toilet Toilet # Unmeasured Voids Void 1 1 2 Bowel Movement No No Height 5 ft 1.42 in Body Mass Index (BMI) 35.3 Weight Measurement Method Standing Scale Weight Measurement Method Est/Stated by Patient Active Medications Aspirin (Ecotrin -) 81 mg PO DAILY [facility] Last Admin: 07/01/19 09:55 Dose: 81 mg Atorvastatin Calcium (Lipitor -) 80 mg PO HS [facility] Last Admin: 06/30/19 22:43 Dose: 80 mg Enoxaparin Sodium (Lovenox -) 40 mg SQ DAILY [facility] Last Admin: 07/01/19 09:55 Dose: 40 mg Sodium Chloride (Normal Saline -) 1,000 mls @ 42 mls/hr IV ASDIR [facility] Last Admin: 06/30/19 22:44 Dose: 42 mls/hr CBC,CMP WBC 6.8 K/mm3 (4.0-10.0) 07/01/19 06:07 RBC 4.73 M/mm3 (4.00-5.60) 07/01/19 06:07 Hgb 14.3 GM/dL (11.7-16.9) 07/01/19 06:07 Hct 42.2 % (35.4-49) 07/01/19 06:07 MCV 89.2 fl (80-96) 07/01/19 06:07 MCH 30.3 pg (25.7-33.7) 07/01/19 06:07 MCHC 33.9 g/dl (32.0-35.9) 07/01/19 06:07 RDW 14.4 % (11.9-15.9) 07/01/19 06:07 Plt Count 205 K/MM3 (134-434) 07/01/19 06:07 MPV 9.7 fl (7.5-11.1) 07/01/19 06:07 Absolute Neuts (auto) 4.8 K/mm3 (1.5-8.0) 07/01/19 06:07 Neutrophils % 69.6 % (42.8-82.8) D 07/01/19 06:07 Lymphocytes % 22.3 % (8-40) D 07/01/19 06:07 Monocytes % 7.2 % (3.8-10.2) 07/01/19 06:07 Eosinophils % 0.6 % (0-4.5) 07/01/19 06:07 Basophils % 0.3 % (0-2.0) 07/01/19 06:07 Nucleated RBC % 0 % (0-0) 07/01/19 06:07 Sodium 141 mmol/L (136-145) 07/01/19 06:07 Potassium 3.9 mmol/L (3.5-5.1) 07/01/19 06:07 Chloride 107 mmol/L (98-107) 07/01/19 06:07 Carbon Dioxide 26 mmol/L (21-32) 07/01/19 06:07 Anion Gap 8 MMOL/L (8-16) 07/01/19 06:07 BUN 9.4 mg/dL (7-18) 07/01/19 06:07 Creatinine 0.7 mg/dL (0.55-1.3) 07/01/19 06:07 Est GFR (CKD-EPI)AfAm 122.27 07/01/19 06:07 Est GFR (CKD-EPI)NonAf 105.50 07/01/19 06:07 Random Glucose 82 mg/dL (74-106) 07/01/19 06:07 Hemoglobin A1c % 5.3 % (4.2-6.3) 07/01/19 06:07 Calcium 8.5 mg/dL (8.5-10.1) 07/01/19 06:07 Total Bilirubin 0.8 mg/dL (0.2-1) 07/01/19 06:07 AST 24 U/L (15-37) 07/01/19 06:07 ALT 42 U/L (13-61) 07/01/19 06:07 Alkaline Phosphatase 69 U/L (45-117) 07/01/19 06:07 Creatine Kinase 413 U/L (26-308) H 06/30/19 15:18 Creatine Kinase Index 1.0 % (0.0-5.0) 06/30/19 15:18 CK-MB (CK-2) 4.2 ng/mL (0.5-3.6) H 06/30/19 15:18 Troponin I < 0.02 ng/ml (0.00-0.05) 06/30/19 15:18 Total Protein 7.5 g/dl (6.4-8.2) 07/01/19 06:07 Albumin 3.4 g/dl (3.4-5.0) 07/01/19 06:07 Triglycerides 207 mg/dL (0-150) H 07/01/19 06:07 Cholesterol 208 mg/dL (50-200) H 07/01/19 06:07 Total LDL Cholesterol 138 mg/dL (5-100) H 07/01/19 06:07 HDL Cholesterol 32 mg/dL (40-60) L 07/01/19 06:07 TSH 0.68 uIU/ml (0.358-3.74) 07/01/19 06:07 mri / cta / u/s reviewed Physical Examination Constitutional: Yes: No Distress, Calm. Eyes: Yes: WNL HENT: Yes: WNL Neck: Yes: Supple Cardiovascular: Yes: Regular Rate and Rhythm Respiratory: Yes: CTA Bilaterally Gastrointestinal: Yes: Normal Bowel Sounds, Soft Edema: No Neurological: Yes: WNL, Alert, Numbness ...Motor Strength: WNL, RUE Psychiatric: Yes: Alert Assessment/Plan stable discussed asa lipitor PT will follow d/c planning -- home vs str Problem List - Problems (1) Obesity Code(s): E66.9 - OBESITY, UNSPECIFIED (2) CVA (cerebral vascular accident) Code(s): I63.9 - CEREBRAL INFARCTION, UNSPECIFIED
[2019-07-01] MEDS ORDERED: TETRAHYDROZOLINE HCL EYE DROPS OU PRN (18:37)
--- NOTE | 2019-07-01 19:58 | PN ---
Progress Note, Physician History of Present Illness: doing much better Alert awake Strength is back No new events - Current Medication List Current Medications: Active Medications Aspirin (Ecotrin -) 81 mg PO DAILY [facility] Last Admin: 07/01/19 09:55 Dose: 81 mg Atorvastatin Calcium (Lipitor -) 80 mg PO HS [facility] Last Admin: 06/30/19 22:43 Dose: 80 mg Enoxaparin Sodium (Lovenox -) 40 mg SQ DAILY [facility] Last Admin: 07/01/19 09:55 Dose: 40 mg Sodium Chloride (Normal Saline -) 1,000 mls @ 42 mls/hr IV ASDIR [facility] Last Admin: 06/30/19 22:44 Dose: 42 mls/hr Tetrahydrozoline HCl (Visine -) 1 drop OU BID PRN PRN Reason: DRY EYES - Objective Vital Signs: Vital Signs Temperature 98.4 F 07/01/19 18:00 Pulse Rate 64 07/01/19 18:00 Respiratory Rate 18 07/01/19 18:00 Blood Pressure 130/86 07/01/19 18:00 O2 Sat by Pulse Oximetry (%) 97 07/01/19 09:00 Constitutional: Yes: Well Nourished Eyes: Yes: WNL Neurological: Yes: Alert, Oriented, Babinski negative ...Motor Strength: WNL Labs: CBC, BMP 07/01/19 06:07 07/01/19 06:07 INR, PTT INR 1.05 (0.83-1.09) 06/30/19 15:18 Problem List - Problems (1) CVA (cerebral vascular accident) Assessment/Plan: Acute left MCA CVA 1. ASA 2. Statin 3. DC home 07/02 Code(s): I63.9 - CEREBRAL INFARCTION, UNSPECIFIED
[2019-07-01] MEDS: ATORVASTATIN CA 80 MG TABLET (FP) PO SCH (22:00)
[2019-07-01] MEDS: SODIUM CHLORIDE 1,000 ML IV SCH (22:35)
[2019-07-02] MEDS ORDERED: PT OWN MED DRAWER 7, Y5N ONE (09:54)
[2019-07-02] MEDS: ASPIRIN COATED 81 MG TABLET.EC PO SCH (10:02)
[2019-07-02] MEDS: ENOXAPARIN NA (PORCINE) 40 MG/0.4 ML DISP.SYRIN SQ SCH (10:02)
--- NOTE | 2019-07-02 11:12 | DS ---
Physical Examination Vital Signs: Vital Signs Temperature 98.0 F 07/02/19 06:00 Pulse Rate 74 07/02/19 06:00 Respiratory Rate 18 07/02/19 06:00 Blood Pressure 142/92 07/02/19 06:00 O2 Sat by Pulse Oximetry (%) 97 07/01/19 21:00 Findings/Remarks: Feels much better mild headache Otherwise okay Denies chest pain or shortness of breath Able to walk Constitutional: Yes: No Distress, Calm Eyes: Yes: Conjunctiva Clear Neck: Yes: Supple Cardiovascular: Yes: Regular Rate and Rhythm Respiratory: Yes: CTA Bilaterally Gastrointestinal: Yes: Soft Edema: No Neurological: Yes: Alert Psychiatric: Yes: Alert Labs: CBC, BMP 07/01/19 06:07 07/01/19 06:07 Discharge Summary Reason For Visit: TRANSIENT ISCHEMIC ATTACK Current Active Problems CVA (cerebral vascular accident) (Acute) Obesity (Acute) Hospital Course: Acute CVA Symptoms much better Cleared by neurology Discharged home today Follow up in office next week Will follow Medications sent to pharmacy as needed Condition: Stable - Instructions Diet, Activity, Other Instructions: Follow up primary MD as instructed. Disposition: HOME - Home Medications Comprehensive Discharge Medication List: Ambulatory Orders Psyllium [Metamucil (Sugar-Free) -] 5.85 gm PO DAILY #30 packet 12/10/18 Acetaminophen [Tylenol] 325 mg PO PRN PRN 06/30/19 Aspirin Coated [Ecotrin -] 81 mg PO DAILY tablet.ec 07/02/19 Atorvastatin Ca [Lipitor] 80 mg PO HS #30 tablet 07/02/19
[2019-07-02 12:05] VITALS: BP 139/77; PULSE 79; TEMP 98.2
== END 2019-07-02 13:21 | disposition home or self-care (01) | DRG 66 ==
LOC: JER 14:54 → JERBED 16:17 → J4S 21:41
PROVIDERS: ADMIT Internal Medicine; ATTEND Internal Medicine
DX: I63.9 Cerebral infarction, unspecified (principal); E66.9 Obesity, unspecified; Z68.35 Body mass index [BMI] 35.0-35.9, adult; K76.0 Fatty (change of) liver, not elsewhere classified
CPT/HCPCS: 36415; 70450-TC; 70496-TC; 70498-TC; 70551-TC; 80053; 80061; 81003; 82550; 82553; 83036; 83721; 84443; 84484; 85025; 85610; 86850; 86900; 86901; 93005; 93010; 93306-TC; 93880-TC; 97116-GP; 97161-GP; 99285-25; J7030; Q9967

== ENCOUNTER 2019-09-16 20:56 | Observation (INO) | payer OTHER ==
--- NOTE | 2019-09-16 21:05 | PDOC ---
Rapid Medical Evaluation Chief Complaint: Pain Time Seen by Provider: 09/16/19 21:03 Medical Evaluation: Allergies Allergy/AdvReac Type Severity Reaction Status Date / Time azithromycin [From Zithromax] Allergy Verified 09/16/19 21:02 diphenhydramine HCl Allergy Verified 09/16/19 21:02 [From Benadryl] Penicillins Allergy Verified 09/16/19 21:02 Vital Signs Temp Pulse Resp BP Pulse Ox 98.9 F 90 18 171/76 H 99 09/16/19 20:59 09/16/19 20:59 09/16/19 20:59 09/16/19 20:59 09/16/19 20:59 09/16/19 21:03 CC: headache and numbness to BUE x>24hrs PE: No focal deficits Orders: Neuro w/u Patient will proceed to ER for continued evaluation. Discharge Disposition - Diagnosis Headache - Referrals - Patient Instructions - Post Discharge Activity
[2019-09-16 21:30] LABS: BASO % 0.6 % (0-2.0); HEMATOCRIT 42.7 % (35.4-49); HEMOGLOBIN 14.4 GM/dL (11.7-16.9); LYMPH % 27.4 % (8-40); MCH 29.9 pg (25.7-33.7); MCHC 33.7 g/dl (32.0-35.9); MEAN CELL VOLUME 88.8 fl (80-96); MEAN PLT VOLUME 9.6 fl (7.5-11.1); PLATELET COUNT 184 K/MM3 (134-434); RBC 4.81 M/mm3 (4.00-5.60); RDW 14.7 % (11.9-15.9); URINE APPEARANCE CLEAR; URINE BILIRUBIN NEGATIVE (NEGATIVE); URINE COLOR YELLOW; URINE GLUCOSE (UA) NEGATIVE (NEGATIVE); URINE KETONE NEGATIVE (NEGATIVE); URINE LEUK ESTERASE NEGATIVE (NEGATIVE); URINE NITRITE NEGATIVE (NEGATIVE); URINE PROTEIN NEGATIVE (NEGATIVE); WHITE BLOOD COUNT 6.9 K/mm3 (4.0-10.0)
[2019-09-16 21:35] LABS: INR 1.06 (0.83-1.09); PROTHROMBIN TIME (PATIENT) 12.5 SEC (9.7-13.0)
[2019-09-16 22:09] LABS: ALBUMIN 3.9 g/dl (3.4-5.0); ALK PHOS 98 U/L (45-117); ANION GAP 7 MMOL/L (8-16); BILIRUBIN,TOTAL 0.4 mg/dL (0.2-1); BLOOD UREA NITROGEN 11.8 mg/dL (7-18); CALCIUM 8.9 mg/dL (8.5-10.1); CHLORIDE 107 mmol/L (98-107); CO2 27 mmol/L (21-32); CREATININE 0.9 mg/dL (0.55-1.3); GLUCOSE,RANDOM 107 mg/dL (74-106); POTASSIUM 3.6 mmol/L (3.5-5.1); SGOT/AST 22 U/L (15-37); SGPT/ALT 34 U/L (13-61); SODIUM 141 mmol/L (136-145); TOT PROT 8.1 g/dl (6.4-8.2)
--- NOTE | 2019-09-16 22:33 | PDOC ---
Attending Attestation - Resident Resident Name: Jae Herzog - ED Attending Attestation I have performed the following: I have examined & evaluated the patient, The case was reviewed & discussed with the resident, I agree w/resident's findings & plan, Exceptions are as noted - HPI HPI: 09/17/19 00:46 59M CVA 2 months ago c/o L sided numbness, parasthesias since noon today. Denies weakness, no change in speech. - Physicial Exam PE: 09/17/19 00:47 Agree with exam as documented by resident - Medical Decision Making 09/17/19 00:47 CVA r/o, TIA f/u labs, ct head CT non-con negative Admit for CVA eval neuro aware will eval in AM MRI pending
--- NOTE | 2019-09-16 22:38 | PDOC ---
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 Also a week of right sided upper and lower extremity pain. No other symptoms. Denies any motor deficits. NIH Stroke Scale - Last Known Well Date/Time & Onset Date Last Known Well: 09/16/19 Time Last Known Well: 12:00 - Initial Evaluation Level of consciousness: Alert Ask patient the month and their age: Answers both correctly Ask patient to open & close eyes; make fist and let go: Obeys both correctly Best gaze (horizontal eye movement): Normal Visual field testing: No visual field loss Facial paresis (Show teeth/raise eyebrows/close eyes tight): Normal symmetrical movement Motor Function: Left Arm: Normal Motor Function: Right Arm: Normal (extends arm 90 (or 45) degrees for 10 seconds without drift Motor Function: Left Leg: Normal (extends leg 30 degrees for 5 seconds without drift) Motor Function: Right Leg: Normal (extends leg 30 degrees for 5 seconds without drift) Limb Ataxia: No ataxia Sensory(Use pinprick test arms,legs,trunk,face/side to side): Mild to moderate decrease in sensation (left) Best language (Describe picture, name items, read sentences): No Aphasia Dysarthria (read several words): Normal articulation Extinction and Inattention: No abnormality - Total Score NIH Stroke Scale Score: 1 Past History - Past Medical History Allergies/Adverse Reactions: Allergies Allergy/AdvReac Type Severity Reaction Status Date / Time azithromycin [From Zithromax] Allergy Verified 09/16/19 21:02 diphenhydramine HCl Allergy Verified 09/16/19 21:02 [From Benadryl] Penicillins Allergy Verified 09/16/19 21:02 Home Medications: Ambulatory Orders Psyllium [Metamucil (Sugar-Free) -] 5.85 gm PO DAILY #30 packet 12/10/18 Acetaminophen [Tylenol] 325 mg PO PRN PRN 06/30/19 Aspirin Coated [Ecotrin -] 81 mg PO DAILY tablet.ec 07/02/19 Atorvastatin Ca [Lipitor] 80 mg PO HS #30 tablet 07/02/19 CVA: Yes (06/30/19) COPD: No - Surgical History GI Surgery: No Neurologic Surgery: No - Immunization History Immunization Up to Date: Yes - Psycho Social/Smoking Cessation Hx Smoking Status: No Smoking History: Never smoked Have you smoked in the past 12 months: No Number of Cigarettes Smoked Daily: 0 Hx Alcohol Use: No Drug/Substance Use Hx: No Substance Use Type: None Hx Substance Use Treatment: No Review of Systems - Review of Systems Able to Perform ROS?: Yes Is the patient limited Hungarian proficient: No Constitutional: No: Symptoms Reported HEENTM: No: Symptoms Reported Respiratory: No: Symptoms reported Cardiac (ROS): No: Symptoms Reported ABD/GI: No: Symptoms Reported : No: Symptoms Reported Musculoskeletal: No: Symptoms Reported Integumentary: No: Symptoms Reported Neurological: Yes: See HPI All Other Systems: Reviewed and Negative *Physical Exam - Vital Signs Last Vital Signs Temp Pulse Resp BP Pulse Ox 98.9 F 90 18 171/76 H 99 09/16/19 20:59 09/16/19 20:59 09/16/19 20:59 09/16/19 20:59 09/16/19 20:59 - Physical Exam General Appearance: Yes: Nourished, Appropriately Dressed. No: Apparent Distress HEENT: positive: EOMI, HALINA, Normal ENT Inspection Respiratory/Chest: positive: Lungs Clear, Normal Breath Sounds. negative: Chest Tender, Respiratory Distress Cardiovascular: positive: Regular Rhythm, Regular Rate, S1, S2 Gastrointestinal/Abdominal: positive: Normal Bowel Sounds, Tender (chronic), Flat, Soft Musculoskeletal: positive: Normal Inspection. negative: CVA Tenderness Extremity: positive: Normal Capillary Refill, Normal Inspection, Normal Range of Motion Neurologic: positive: Other (mildly decreased sensation over left face arm and leg. ) ED Treatment Course - LABORATORY CBC & Chemistry Diagram: 09/16/19 21:15 09/16/19 21:15 - ADDITIONAL ORDERS Additional order review: Laboratory Results 09/16/19 09/16/19 09/16/19 21:15 21:15 21:15 PT with INR 12.50 INR 1.06 Sodium Potassium Chloride Carbon Dioxide Anion Gap BUN Creatinine Est GFR (CKD-EPI)AfAm Est GFR (CKD-EPI)NonAf Random Glucose Calcium Total Bilirubin AST ALT Alkaline Phosphatase Creatine Kinase Creatine Kinase Index CK-MB (CK-2) Troponin I Total Protein Albumin Urine Color Yellow Urine Appearance Clear Urine pH 7.0 Ur Specific [place] 1.015 Urine Protein Negative Urine Glucose (UA) Negative Urine Ketones Negative Urine Blood Negative Urine Nitrite Negative Urine Bilirubin Negative Urine Urobilinogen 1.0 Ur Leukocyte Esterase Negative Blood Type O POSITIVE Antibody Screen Negative 09/16/19 21:15 PT with INR INR Sodium 141 Potassium 3.6 Chloride 107 Carbon Dioxide 27 Anion Gap 7 L BUN 11.8 Creatinine 0.9 Est GFR (CKD-EPI)AfAm 109.50 Est GFR (CKD-EPI)NonAf 94.48 Random Glucose 107 H Calcium 8.9 Total Bilirubin 0.4 AST 22 ALT 34 Alkaline Phosphatase 98 Creatine Kinase 195 Creatine Kinase Index 0.6 CK-MB (CK-2) 1.2 Troponin I < 0.02 Total Protein 8.1 Albumin 3.9 Urine Color Urine Appearance Urine pH Ur Specific [place] Urine Protein Urine Glucose (UA) Urine Ketones Urine Blood Urine Nitrite Urine Bilirubin Urine Urobilinogen Ur Leukocyte Esterase Blood Type Antibody Screen 09/16/19 21:15 RBC 4.81 MCV 88.8 MCHC 33.7 RDW 14.7 MPV 9.6 Neutrophils % 62.0 Lymphocytes % 27.4 D Monocytes % 9.0 Eosinophils % 1.0 Basophils % 0.6 Medical Decision Making - Medical Decision Making 09/16/19 23:06 59m with 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 CT head negative. Consulted with Dr. Noonan who asked for MRI order and will see patient tomorrow. Admitted to Stroke unit obs. 09/16/19 23:08 MRI pending Discharge - Discharge Information Problems reviewed: Yes Clinical Impression/Diagnosis: Numbness and tingling in left arm, Headache - Admission Yes - Follow up/Referral Referrals: Mary Zurita MD [Primary Care Provider] - - Patient Discharge Instructions - Post Discharge Activity
--- NOTE | 2019-09-16 23:26 | HP ---
Admitting History and Physical - Primary Care Physician PCP: - Admission Chief Complaint: headache and numbness/weakness Left side History of Present Illness: 59 male with PMH of L central [place] infarct back in June, arrived o ED with complain of left sided numbness over the left face, arm and leg since noon today , headache, dizziness, muscle cramps in b/l LE. No other symptoms. Patient states after first stroke he took his Lipitor for 1 month then stopped due to side effects muscle cramps and headache, Dr. Zimmerman neurology switched his medication (? does member name of medication, and gave me anxiety medication) however also stopped that a week later. Denies any motor deficits. Patient denies cp/sob, denies issues with ambulation, no urinary symptoms. 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 (L central [place] infarct back in June,) - Past Surgical History Past Surgical History: Yes: None - Smoking History Smoking history: Never smoked Have you smoked in the past 12 months: No Aproximately how many cigarettes per day: 0 - Alcohol/Substance Use Hx Alcohol Use: No History of Substance Use: reports: None - Social History Usual Living Arrangement: Yes: With Spouse Do you think of yourself as: Straight/Heterosexual ADL: Independent History of Recent Travel: No Home Medications - Allergies Allergies/Adverse Reactions: Allergies Allergy/AdvReac Type Severity Reaction Status Date / Time azithromycin [From Zithromax] Allergy Verified 09/16/19 21:02 diphenhydramine HCl Allergy Verified 09/16/19 21:02 [From Benadryl] Penicillins Allergy Verified 09/16/19 21:02 - Home Medications Home Medications: Ambulatory Orders Psyllium [Metamucil (Sugar-Free) -] 5.85 gm PO DAILY #30 packet 12/10/18 Acetaminophen [Tylenol] 325 mg PO PRN PRN 06/30/19 Aspirin Coated [Ecotrin -] 81 mg PO DAILY tablet.ec 07/02/19 Atorvastatin Ca [Lipitor] 80 mg PO HS #30 tablet 07/02/19 Family Medical History Family History: Denies Review of Systems - Review of Systems Constitutional: reports: Weakness (left side weakness) Eyes: reports: No Symptoms HENT: reports: No Symptoms Neck: reports: No Symptoms Cardiovascular: reports: No Symptoms Respiratory: reports: No Symptoms Gastrointestinal: reports: No Symptoms Genitourinary: reports: No Symptoms Musculoskeletal: reports: Muscle Pain (b/l LE), Muscle Cramps (b/l LE) Integumentary: reports: No Symptoms Neurological: reports: Dizziness, Headache Endocrine: reports: No Symptoms Hematology/Lymphatic: reports: No Symptoms Psychiatric: reports: No Symptoms Physical Examination Vital Signs: Vital Signs Temperature 98.9 F 09/16/19 20:59 Pulse Rate 74 09/16/19 23:14 Respiratory Rate 18 09/16/19 23:14 Blood Pressure 146/79 09/16/19 23:14 O2 Sat by Pulse Oximetry (%) 97 09/16/19 23:14 Constitutional: Yes: No Distress, Calm Eyes: Yes: Conjunctiva Clear, EOM Intact HENT: Yes: Atraumatic, Normocephalic Neck: Yes: Supple, Trachea Midline Cardiovascular: Yes: Regular Rate and Rhythm Respiratory: Yes: Regular, CTA Bilaterally Gastrointestinal: Yes: Normal Bowel Sounds, Soft Musculoskeletal: Yes: WNL Extremities: Yes: WNL Edema: No Peripheral Pulses WNL: Yes Neurological: Yes: Alert, Oriented, Other (mild decrease in sensation on left side of face) Labs: CBC, BMP 09/16/19 21:15 09/16/19 21:15 Imaging - Results Cat Scan: Report Reviewed (CT head : negative) Problem List - Problems (1) History of CVA (cerebrovascular accident) Code(s): Z86.73 - PRSNL HX OF TIA (TIA), AND CEREB INFRC W/O RESID DEFICITS (2) Headache Code(s): R51 - HEADACHE (3) Numbness and tingling in left arm Code(s): R20.0 - ANESTHESIA OF SKIN; R20.2 - PARESTHESIA OF SKIN Assessment/Plan 59 male with PMH of L central [place] infarct back in June, arrived to ED with left sided numbness over the left face, arm and leg since noon today. #R/O New CVA # h/o of L central [place] infarct # noncompliant with medication - CT head negative - MRI in AM - neurology to follow in AM - continue with ASA 81 mg daily - ? antihyperlipidemic medication ( does not take lipitor anymore) Diet: low fat/chol diet DVT ppx: obs patient Visit type - Emergency Visit Emergency Visit: Yes ED Registration Date: 09/16/19 Care time: The patient presented to the Emergency Department on the above date and was hospitalized for further evaluation of their emergent condition. - New Patient This patient is new to me today: Yes Date on this admission: 09/16/19 - Critical Care Critical Care patient: No
[2019-09-16] MEDS ORDERED: ACETAMINOPHEN 325 MG TABLET (FP) PO PRN (23:51)
[2019-09-17] MEDS ORDERED: ACETAMINOPHEN 325 MG TABLET (FP) ONE (00:43)
[2019-09-17 03:59] VITALS: BMI 33.6
[2019-09-17 07:03] LABS: CHOLESTEROL 220 mg/dL (50-200); HDL CHOLESTEROL 32 mg/dL (40-60); LDL CHOLESTEROL (ONLY SJRH) 144 mg/dL (5-100); TRIGLYCERIDES 188 mg/dL (0-150)
--- NOTE | 2019-09-17 09:32 | CON.NEURO ---
Consult Reason for Consultation:: weakness - History of Present Illness History of Present Illness: 59-year-old right-handed man with history of prior CVA/TIA hypertension presents to the hospital with a chief complaint of one day history of headache muscle cramps and left-sided weakness. I'll LAST saw the patient last time in August 17, 2019 patient was in the hospital in June 2019 patient presented with right-sided weakness patient was diagnosed with CVA patient was placed on statin. In the emergency room patient's CAT scan of the head revealed no evidence of acute pathology patient was stabilized hemodynamically stable patient was admitted to the stroke unit for further treatment and management. No report of any recent travel. Patient was supposed to come and see me next Friday. 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 (L central [place] infarct back in June,) - Past Surgical History Past Surgical History: Yes: None - Alcohol/Substance Use Hx Alcohol Use: No History of Substance Use: reports: None - Smoking History Smoking history: Never smoked Have you smoked in the past 12 months: No Aproximately how many cigarettes per day: 0 - Social History ADL: Independent History of Recent Travel: No Home Medications - Allergies Allergies/Adverse Reactions: Allergies Allergy/AdvReac Type Severity Reaction Status Date / Time azithromycin [From Zithromax] Allergy Verified 09/16/19 21:02 diphenhydramine HCl Allergy Verified 09/16/19 21:02 [From Benadryl] Penicillins Allergy Verified 09/16/19 21:02 - Home Medications Home Medications: Ambulatory Orders Aspirin Coated [Ecotrin -] 81 mg PO DAILY tablet.ec 07/02/19 Family Medical History Family History: Unremarkable Review of Systems - Review of Systems Constitutional: reports: No Symptoms Eyes: reports: No Symptoms Physical Exam-Neuro Vital Signs: Vital Signs Temperature 98.2 F 09/17/19 06:00 Pulse Rate 69 09/17/19 06:00 Respiratory Rate 16 09/17/19 06:00 Blood Pressure 121/80 09/17/19 06:00 O2 Sat by Pulse Oximetry (%) 98 09/17/19 04:05 Constitutional: Yes: Well Nourished Neck: Yes: WNL Cardiovascular: Yes: WNL Labs: CBC, BMP 09/16/19 21:15 09/16/19 21:15 INR, PTT INR 1.06 (0.83-1.09) 09/16/19 21:15 - Neuro Exam Level Of Consciousness: Yes: Oriented to Person, Oriented to Place, Oriented to Time Eyes: Yes: PERRLA Speech: WNL Dominant Hand: Right Cranial Nerves II-XII Intact: Yes Gag: Present Response to light touch: Normal Response to pain prick: Normal Response to temperature: Normal Response to vibration: Normal Motor Strength: 3/5: Left Arm, Right Arm, Left Leg, Right Leg Gait: Deferred Imaging - Results Cat Scan: Image Reviewed Problem List - Problems (1) History of CVA (cerebrovascular accident) Assessment/Plan: this is the opposite side of the presentation from June 2019. No evidence of acute ELECTROTYPER HELPER pathology. 1. Review the old records. 2. Full aspirin. 4. Continue statin. 5. Homocystine level. 6. Physical therapy. 7. Fall precautions. 8. Holter monitor. Thank you very much for referring this patient for neurological consultation Gary Treviño Code(s): Z86.73 - PRSNL HX OF TIA (TIA), AND CEREB INFRC W/O RESID DEFICITS
[2019-09-17] MEDS: ASPIRIN COATED 81 MG TABLET.EC PO SCH (10:25)
[2019-09-17] MEDS: PSYLLIUM 5.85 GM PACKET PO SCH (10:25)
--- NOTE | 2019-09-17 11:09 | PN ---
Progress Note (short form) - Note Progress Note: pt seen/ examined chart reviewed complains of numbness= arms/legs. also complains of acidity denies cp. Vital Signs Temp 97.9 F 09/17/19 10:00 Pulse 66 09/17/19 10:00 Resp 18 09/17/19 10:00 BP 145/86 09/17/19 10:00 Pulse Ox 98 09/17/19 04:05 Intake & Output 09/16/19 09/16/19 09/17/19 11:59 23:59 11:59 Intake Total 110 Balance 110 Weight 183 lb 184 lb Intake: IV 10 LAC 10 Oral 100 Other: Voiding Method Toilet Toilet # Unmeasured Voids Void 1 Height 5 ft 2 in 5 ft 2 in Body Mass Index (BMI) 33.5 33.6 Weight Measurement Method Standing Scale Active Medications Acetaminophen (Tylenol -) 650 mg PO Q6H PRN PRN Reason: PAIN OR FEVER Last Admin: 09/17/19 00:57 Dose: 650 mg Aspirin (Ecotrin -) 81 mg PO DAILY [facility] Last Admin: 09/17/19 10:25 Dose: 81 mg Famotidine (Pepcid -) 20 mg PO DAILY [facility] Psyllium Hydrophilic Mucilloid (Metamucil (Sugar-Free) -) 5.85 gm PO DAILY [facility] Last Admin: 09/17/19 10:25 Dose: Not Given Rosuvastatin Calcium (Crestor -) 10 mg PO HS [facility] CBC, BMP 09/16/19 21:15 09/16/19 21:15 Abnormal Lab Results 09/16/19 09/17/19 21:15 05:50 Anion Gap 7 L Random Glucose 107 H Triglycerides 188 H Cholesterol 220 H Total LDL Cholesterol 144 H HDL Cholesterol 32 L MRI - Brain - Noted Physical Examination Constitutional: Yes: No Distress, Calm Eyes: Yes: Conjunctiva Clear, EOM Intact HENT: Yes: Atraumatic, Normocephalic Neck: Yes: Supple, Trachea Midline Cardiovascular: Yes: Regular Rate and Rhythm Respiratory: Yes: Regular, CTA Bilaterally Gastrointestinal: Yes: Normal Bowel Sounds, Soft, non tender Musculoskeletal: Yes: WNL Extremities: Yes: WNL Edema: No Peripheral Pulses WNL: Yes Neurological: Yes: Alert, Oriented, Other (mild decrease in sensation on left side of face) Problem List - Problems (1) History of CVA (cerebrovascular accident) Code(s): Z86.73 - PRSNL HX OF TIA (TIA), AND CEREB INFRC W/O RESID DEFICITS (2) Headache Code(s): R51 - HEADACHE (3) Numbness and tingling in left arm Code(s): R20.0 - ANESTHESIA OF SKIN; R20.2 - PARESTHESIA OF SKIN Assessment/Plan Mri Brain -ve Add crestor- if pt tolerates MRI - Neck PT Add Pepcid Will follow
[2019-09-17] MEDS: FAMOTIDINE 20 MG TABLET PO SCH (11:32)
--- NOTE | 2019-09-17 13:29 | EKG ---
Test Reason : Blood Pressure : / mmHG Vent. Rate : 081 BPM Atrial Rate : 081 BPM P-R Int : 178 ms QRS Dur : 110 ms QT Int : 378 ms P-R-T Axes : 059 006 036 degrees QTc Int : 439 ms NORMAL SINUS RHYTHM POSSIBLE LEFT ATRIAL ENLARGEMENT INCOMPLETE RIGHT BUNDLE BRANCH BLOCK WHEN COMPARED WITH ECG OF 30-JUN-2019 15:39, NO SIGNIFICANT CHANGE WAS FOUND Confirmed by FRAN ORTA MD ([id number]) on 09/17/2019 1:28:53 PM Referred By: Confirmed By:FRAN ORTA MD
[2019-09-17] MEDS ORDERED: ROSUVASTATIN CA 10 MG TABLET (FP) PO SCH (22:00)
[2019-09-18] MEDS: PSYLLIUM 5.85 GM PACKET PO SCH (09:03)
[2019-09-18] MEDS: FAMOTIDINE 20 MG TABLET PO SCH (09:03)
[2019-09-18] MEDS: ASPIRIN COATED 81 MG TABLET.EC PO SCH (09:03)
--- NOTE | 2019-09-18 15:18 | DS ---
Physical Examination Vital Signs: Vital Signs Temperature 98.5 F 09/18/19 10:00 Pulse Rate 65 09/18/19 10:00 Respiratory Rate 18 09/18/19 12:00 Blood Pressure 129/79 09/18/19 10:00 O2 Sat by Pulse Oximetry (%) 98 09/18/19 12:00 Labs: CBC, BMP 09/16/19 21:15 09/16/19 21:15 Discharge Summary Problems reviewed: Yes Reason For Visit: NUMBNESS & TINGLING OF LT UPPER EXTREMITY,CVA Current Active Problems Headache (Acute) History of CVA (cerebrovascular accident) (Acute) Numbness and tingling in left arm (Acute) - Instructions Referrals: Mary Zurita MD [Primary Care Provider] - Gary Treviño MD [Staff Physician] - - Home Medications Comprehensive Discharge Medication List: Ambulatory Orders Aspirin Coated [Ecotrin -] 81 mg PO DAILY tablet.ec 07/02/19 Famotidine [Pepcid -] 20 mg PO DAILY #30 tablet 09/18/19 Rosuvastatin [Crestor -] 10 mg PO HS #60 tablet 09/18/19
[2019-09-18 16:11] VITALS: BP 128/76; PULSE 68; TEMP 98.4
== END 2019-09-18 16:20 | disposition home or self-care (01) ==
LOC: JER 20:56 → JERBED 22:59 → J4S 09-17 02:56
PROVIDERS: ADMIT Internal Medicine; ATTEND Internal Medicine
DX: R20.0 Anesthesia of skin (principal); R20.2 Paresthesia of skin; R51 Headache; Z86.73 Personal history of transient ischemic attack (TIA), and cerebral infarction without residual deficits; Z88.0 Allergy status to penicillin; Z88.1 Allergy status to other antibiotic agents; Z88.8 Allergy status to other drugs, medicaments and biological substances; Z79.82 Long term (current) use of aspirin
CPT/HCPCS: 36415; 70450-TC; 70551-TC; 71045-TC-FY; 80053; 80061; 81003; 82550; 82553; 83721; 84484; 85025; 85610; 86850; 86900; 86901; 93005; 93010; 97116-GP; 97161-GP; 99285-25; G0378